=== PATIENT | female | born 1940 | race Caucasian/White ===

== ENCOUNTER 2019-03-22 08:46 | Inpatient (IN) ==
[2019-03-22] MEDS ORDERED: NS 1,000 ML IV ONE ×3 (09:11→19:49)
[2019-03-22] MEDS ORDERED: NORFLEX IV ONE (09:14)
[2019-03-22] MEDS ORDERED: TYLENOL WITH CODEINE #3 PO ONE (09:14)
--- NOTE | 2019-03-22 09:29 | PROVIDER DOCUMENTATION ---
HPI-General Adult - General Chief Complaint: Neck Pain Stated Complaint: NECK BACK HEAD PAIN, N/V/D Time Seen by Provider: 03/22/19 08:52 Source: patient, family Allergies/Adverse Reactions: Patient Allergies Allergy/AdvReac Type Severity Reaction Status Date / Time codeine Allergy NAUSEA/VOMI Verified 10/25/15 16:10 TING Sulfa (Sulfonamide Allergy RASH Verified 09/28/13 13:59 Antibiotics) Home Medications: Home Medication List Medication Instructions Recorded Confirmed Last Taken Type Amlodipine Besylate [Norvasc] 5 mg PO DAILY 08/12/17 03/22/19 03/21/19 History 5 MG Duloxetine HCl [Cymbalta] 30 mg PO DAILY 08/12/17 03/22/19 03/21/19 History 30 MG Hydrocodone/Acetaminophen [[place] 1 each PO Q4-6H PRN PRN 08/12/17 03/22/19 03/21/19 History 7.5-325 Tablet] 1 EACH Letrozole 2.5 mg PO DAILY 08/12/17 03/22/19 03/21/19 History 2.5 MG Meloxicam [Mobic] 15 mg PO DAILY 08/12/17 03/22/19 03/21/19 History 15 MG Nitrofurantoin [place]/Macrocryst 100 mg PO BID 5 Days #10 cap 03/22/19 Unknown Rx [Macrobid] - History of Present Illness -Gen Adult Nature of Presenting Problems: PER PATIENT, MEDICAL CONDITION OF HYPERTENSION AND FIBROMYALGIAC CAME IN TODAY WITH CONCERN OF LEFT NECK PAIN THAT STARTED THIS PAST WHILE DOING NOTHING AT HOME. PATIENT DENIES ANY RECENT INJURY OR CHIRPRACTOR MANEUVRATION. STATES INITALLY IT WAS GRADUAL ONSET BUT WITHIN ONE HOUR, IT BECAME 10/10. ENDORSE CHILL. DENIES OTHER ASSOICATED SYMPTOSM SUCH HEADACHE, BLURRY VISION, EAR PAIN, SINUS DISCOMFORT, SORE THROAT, CHEST PAIN, DYSPNEA, ABDOMINAL DISCOMFORT; SEE ROS SECTION. Review of Systems - Adult - REVIEW OF SYSTEMS - ADULT Constitutional: reports: chills. denies: fever, night sweats Eyes: denies: blurred vision Ears, Nose, Mouth & Throat: denies: ear pain, throat pain Cardiovascular: denies: chest pain Respiratory: denies: cough, shortness of breath Gastrointestinal: denies: abdominal pain, diarrhea, nausea Genitourinary: denies: dysuria Musculoskeletal: reports: neck pain. denies: joint pain, muscle weakness Integumentary: reports: no symptoms reported Neurological: reports: no symptoms reported Psychiatric: reports: no symptoms reported Endocrine: reports: no symptoms reported Hematologic/Lymphatic: reports: no symptoms reported Allergic/Immunologic: reports: no symptoms reported Past History - Adult - PAST MEDICAL HISTORY-ADULT Review of Records: reports: Old Records Reviewed Major Childhood Illnesses: reports: denies history Cardiovascular: reports: HTN Other Conditions: reports: other cancer (right breast ca), cataract/glaucoma - PRIOR SURGERIES/PROCEDURES Surgical/Procedure History: reports: hysterectomy - IMMUNIZATION STATUS Childhood Immunizations: See Nurse Assessment Flu Vaccine: See Nurse Assessment - FAMILY HISTORY Family History: reviewed, not pertinent Physical Exam-General - PHYSICAL EXAM-ADULT Initial Vital Signs Reviewed: Yes - CONSTITUTIONAL General Appearance: alert, mild distress - EYES Eyes: PERRL/EOMI - HEAD, EARS, NOSE, MOUTH & THROAT HENMT: normocephalic/atraumatic, moist mucous membranes - NECK Neck: supple, other (NO TRACHIAL DEVIATION. POINT TENDERNESS BILATERAL OCCIPUT AND TRAPEZIUS WELL LAERAL EPICONDYL AND KNEE. LIMITED NECK RANGE OF MOTION DUE TO PAIN. NO KERNIG SIGN.) - RESPIRATORY Respiratory: chest non-tender, lungs clear, normal breath sounds - CARDIOVASCULAR Cardiovascular: normal peripheral pulses, regular rate, rhythm, no edema, no gallop, no JVD, no murmur - GASTROINTESTINAL (ABDOMEN) Abdominal Exam: normal bowel sounds, non tender, soft - MUSCULOSKELETAL Back Exam: normal inspection. negative: vertebral tenderness Extremity: normal range of motion - SKIN Integumentary: normal color, normal turgor, warm/dry - NEUROLOGIC Neurologic: grossly normal - PSYCHIATRIC Psych/Mental Status: normal mood/affect, normal thought content, normal thought process, oriented x 3 Progress - PLAN OF CARE/RESULTS Progress/Plan/Lab Results: Vital Signs - 8 hr 03/22/19 08:39 Temperature 98.0 F Pulse Rate 78 Respiratory Rate 17 Blood Pressure 156/73 O2 Sat by Pulse Oximetry 99 Orders Category Date Time Status IV Insertion ORDERED Care 03/22/19 09:[address] NECK W/CONTRAST [CT] Stat Exams 03/22/19 09:11 Ordered BASIC METABOLIC PANEL [CHEM] Stat Lab 03/22/19 09:11 Uncollected BLOOD CULTURE [BLDCUL] Stat Lab 03/22/19 09:11 Uncollected CBC WITH ELECTRONIC DIFF [HEME] Stat Lab 03/22/19 09:11 Uncollected MAGNESIUM [CHEM] Stat Lab 03/22/19 09:11 Uncollected URINALYSIS [URINALYSIS] Stat Lab 03/22/19 09:11 Uncollected 0.9% Sodium Chloride Inj [Ns] 1,000 ml Med 03/22/19 09:11 Active IV 999 mls/hr Acetaminophen with Codeine [Tylenol with Codeine #3] Med 03/22/19 09:14 Discon tinued 1 each PO NOW ONE Orphenadrine [Norflex] Med 03/22/19 09:14 Discontinued 60 mg IV NOW ONE Result Diagrams: 03/22/19 09:26 03/22/19 09:26 - REASSESSMENT Reassessment #1 Time Reassessed: 13:51 Status: other (MESSAGE WAS RELAYED FROM LEAD CASTER HELPER THAT PER RADIOLOGIST WHO READ THE CT OF NECK WITHOUT CONTRACT; RADIOLOGIST IS ABLE TO SEE THE NECK AND NO ADDITIONAL INDICATION TO RESCAN WITH CONTRAST. REVIEW OF PATIENT'S LAB REVEAL MILDLY ELEVATED WBC IN SETTING OF UTI; WILL TREAT WITH CEFTRIAXONE AND D/C PATIENT ON ANTIBIOTICS. PATIENT HAS HYPOKALEMIA WHICH WAS REPLEATED. PATIENT REMAINED HEMODYNAMICALLY STABLE AND AFEBIEL IN THE [facility] ER STAY. I HAVE INFORMED FAMILY AND PATIENT THE FINDING BUT THEY WERE NOT SASTIFIFED WITH THE FINDING. I HAVE INFORMED THEN THEY HAVE TO FOLLOW UP WITH PCP BY CALLING AFTER D/C AND AMKE THE NEXT AVAILASBLE APPOINTMENT.) - EKG 1 Time of EKG reading by physician:: 09:12 EKG Read and Signed by:: Huseyin Martin EKG Interpretation (*Must complete 3 of following elements*): Normal Rate: 72 Rhythm: NRS [place]: normal QRS: normal [place] Interval: normal ST Wave: normal Prior EKG Comparison: no prior EKG - CT/MRI 1 CT Study: Neck ([facility] - [address], [address], [place] [address] [facility] - [address] [facility] [address] Department of Imaging Patient: LORRIE WATERS Date: 03/22/19MR#: [id number] : 1941ADM Status: [facility]#: [id number] Age/Sex: 78/FRoom/Bed: Loc: ED Ordering Physician: Huseyin Martin MD Family Physician: Lucio Amor MD Reason for Procedure: SEVERE LEFT NECK PAIN OUT OF PROPORTION; NO INJURY ___ Signed CT NECK W/CONTRAST - 03/22/2019 INDICATION: SEVERE LEFT NECK PAIN OUT OF PROPORTION; NO INJURY COMPARISON: Cervical spine CT 10/25/2015 FINDINGS: The soft tissues of the neck are clear. The major salivary glands are all clear. Mucosal surfaces are clear. No mass or adenopathy. Alignment of the spine is anatomic. Stable fusion changes at C5-C6. No fracture or subluxation. Stable moderate multilevel degeneration mainly at the left-sided facets. IMPRESSION: No acute process. This exam was performed using automated exposure control, adjustment of mA or kV according to patient size, and/or use of iterative reconstruction technique Electronically signed by Lit Otero 03/22/2019 12:07 PM 03/22/19 1207 Interpreting Physician: Lit Otero MD Dictated Date/Time: 03/22/19 1202 cc: Huseyin Martin MD; Lucio Amor MD) Departure - Departure Date of Disposition Decision: 03/22/19 Time of Disposition Decision: 13:54 DIAGNOSIS: Fibromyalgia, Urinary tract infection Disposition: HOME 01 Certified Medical Emergency: Emergent Condition: Stable Additional Instructions: ED Follow Up Instructions: You have been treated by a care provider in the Emergency Department. These instructions are being provided to you so you can have an understanding of how to care for yourself upon discharge. Upon discharge from the Emergency Department, you are responsible for making arrangements for follow-up care by a physician of your choice. Take all prescribed medications as directed. Return to the Emergency Department immediately for any new or worsening symptoms. Call your primary care provider after discharge from the Emergency Room and make a follow up appointment to be seen at the next available appointment within 7 days. Prescriptions: Nitrofurantoin [place]/Macrocryst [Macrobid] 100 mg PO BID 5 Days #10 cap Referrals and Follow-Ups: Lucio Amor MD [Primary Care Provider] - - Critical Care Note This patient required my direct & personal management of CC.: No Attestation - Physician/ SUSIE Attestation Patient care was provided by Advanced Practice Provider:: No The physician spent face to face time with patient:: Yes Advanced Practice Provider documentation review:: Supervising physician onsite and consulted in the evaluation and care of this patient. The physician did have a face to face encounter with the patient.
[2019-03-22 10:03] LABS: BASO# 0.02 X1000 (0.0-0.2); BASO% 0.2 % (0.0-0.8); EOS# 0.18 X1000 (0.0-0.7); EOS% 1.5 % (0.0-10.0); HEMATOCRIT 39.8 % (37.0-47.0); HEMOGLOBIN 13.2 g/dL (12.0-16.0); IMM GRAN# 0.03 X1000 (0.0-0.04); IMM GRAN% 0.3 % (0.0-0.5); LYMPH# 3.12 X1000 (1.2-3.4); MCH 30.6 PG (27-31); MCHC 33.2 g/dL (33-37); MCV 92.1 FL (81-99); MONO# 1.34 X1000 (0.11-0.59); MONO% 11.2 % (1.7-9.3); MPV 11.2 FL (7.4-10.4); NEUT% 60.8 % (42.2-75.2); PLT 340 X1000 (130-400); RBC 4.32 XMIL (4.2-5.4); RDW 12.7 % (11.5-14.5); WBC 11.99 X1000 (4.8-10.8)
[2019-03-22 10:44] LABS: CALCIUM 10.5 mg/dL (8.8-10.2); MAGNESIUM 1.9 mg/dL (1.5-2.7); POTASSIUM 3.4 mmol/L (3.5-5.1)
[2019-03-22 11:01] LABS: URINE SOURCE CLEAN CATCH
[2019-03-22 11:05] LABS: BILIRUBIN URINE NEGATIVE (NEGATIVE); BLOOD URINE NEGATIVE (NEGATIVE); COLOR YELLOW; GLUCOSE URINE NEGATIVE (NEGATIVE); KETONE URINE TRACE mg/dL (NEGATIVE); LEUKOCYTES URINE LARGE (NEGATIVE); NITRITE URINE NEGATIVE (NEGATIVE); PH URINE 7.5; PROTEIN URINE 30 mg/dL (NEGATIVE); SP GRAVITY URINE 1.016; TURBIDITY URINE HAZY (CLEAR); UR EPITHELIAL CELLS <10 /HPF (<10); URINE BACTERIA NEGATIVE /HPF; URINE RBC <10 /HPF (<10); URINE WBC TNTC /HPF (<10); UROBILINOGEN URINE NORMAL (NORMAL)
[2019-03-22] MEDS ORDERED: KLOR-CON PO ONE (11:26)
--- NOTE | 2019-03-22 12:10 | Diag Imaging Result Doc PS360 ---
CT NECK W/CONTRAST - 03/22/2019 INDICATION: SEVERE LEFT NECK PAIN OUT OF PROPORTION; NO INJURY COMPARISON: Cervical spine CT 10/25/2015 FINDINGS: The soft tissues of the neck are clear. The major salivary glands are all clear. Mucosal surfaces are clear. No mass or adenopathy. Alignment of the spine is anatomic. Stable fusion changes at C5-C6. No fracture or subluxation. Stable moderate multilevel degeneration mainly at the left-sided facets. IMPRESSION: No acute process. This exam was performed using automated exposure control, adjustment of mA or kV according to patient size, and/or use of iterative reconstruction technique Electronically signed by Lit Otero 03/22/2019 12:07 PM
--- NOTE | 2019-03-22 12:11 | EKG Report ---
Test Performed on : 03/22/2019 09:12:11 AM Test Reason : NECK PAIN Blood Pressure : / mmHG Vent. Rate : 072 BPM Atrial Rate : 072 BPM P-R Int : 136 ms QRS Dur : 084 ms QT Int : 376 ms P-R-T Axes : 071 010 -14 degrees QTc Int : 411 ms Normal sinus rhythm. Nonspecific ST and T wave abnormality Abnormal ECG When compared with ECG of 25-OCT-2015 17:20, ST now depressed in Inferior leads Nonspecific T wave abnormality now evident in Inferior leads Inverted T waves have replaced nonspecific T wave abnormality in Anterior leads Unconfirmed Result
[2019-03-22] MEDS ORDERED: ROCEPHIN 1 GM in NS 50 ML IV ONE (12:45)
[2019-03-22] MEDS ORDERED: FLEXERIL PO ONE (15:03)
[2019-03-22] MEDS ORDERED: ZOFRAN IV PRN (19:42)
[2019-03-22] MEDS ORDERED: TYLENOL PO PRN (19:42)
[2019-03-22] MEDS ORDERED: NORCO-7.5 PO ONE (19:44)
[2019-03-22] MEDS: LYRICA PO SCH (20:46)
[2019-03-22] MEDS: LOVENOX SUBQ SCH (20:46)
[2019-03-22] MEDS: NORVASC PO SCH (20:46)
--- NOTE | 2019-03-22 21:02 | HISTORY AND PHYSICAL ---
PRIMARY CARE PHYSICIAN: Dr. Lucio Amor. CHIEF COMPLAINT: Intractable left neck pain, nausea, chills. HISTORY OF PRESENT ILLNESS: An 78-year-old white female with a complicated past medical history presents for evaluation of above-mentioned symptoms. Pertinent history of present illness began approximately 2 weeks ago. At that time, patient developed acute onset left cervical spine pain. She denied significant left upper extremity neurologic deficits or loss of strength. This proved to be self-limiting. Around this time, patient's gabapentin was discontinued per her pain specialist. The patient continued to have intermittent symptoms over the course of the next week. Patient was seen by her pain specialist and her Nucynta was transitioned to [place]. The patient was taking [place] approximately 1 time per day. On Friday afternoon, patient developed intractable headache, intractable left cervical spine pain, nausea, vomiting, and chills. She attempted to treat this symptomatically, although without success. On Friday, the pain continued. She was unable to rest. P.o. intake decreased considerably secondary to the nausea and vomiting. She denied fevers, abdominal pain, constipation, hematochezia, and melena. She has occasional diarrhea. This morning upon waking, the pain became unbearable. The patient contacted EMS and patient was transported to the emergency department for further evaluation and management. Upon arrival, full evaluation was pursued. CT scan of the neck revealed no acute process. EKG suggested nonspecific ST and T-wave abnormalities. Laboratory data was significant for an elevated white blood cell count, hypokalemia, and a urinalysis with too many to count white blood cells present. Pain management was attempted in the emergency department, although unsuccessfully. The patient will be admitted to the hospital for full evaluation and management of intractable left cervical spine pain with associated nausea, vomiting and chills. PAST MEDICAL HISTORY: 1. Allergic rhinitis. 2. History of appendectomy during exploratory laparotomy in the mid . 3. Diffuse arthralgias, likely Femara associated. 4. Multiple brown nevi. 5. History of infiltrating ductal carcinoma of the right breast status post lumpectomy followed by XRT. 6. History of left-sided trochanteric bursitis. 7. Atypical chest pain with negative cardiac evaluation in 2005. 8. 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 9. Colonic diverticulosis. 10. Situational depression associated with chronic low back pain. 11. Reflux disease. 12. Hypertriglyceridemia. 13. Family history of heart disease. 14. Internal hemorrhoids. 15. Hiatal hernia. 16. Hyperlipidemia. 17. Hypertension. 18. Low HDL. 19. History of menorrhagia status post total abdominal hysterectomy /unilateral salpingo- oophorectomy at age 34. 20. Right knee osteoarthritis status post total knee arthroplasty in 2006. 21. 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 She currently is followed by Dr. Ramos with pain management. 22. 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 23. History of colonic polyps. 24. Urinary incontinence. 25. History of vitamin D deficiency. CURRENT MEDICATIONS: 1. Amlodipine 5 mg twice daily. 2. Duloxetine 60 mg daily. 3. Hydrochlorothiazide 12.5 mg daily. 4. Letrozole 2.5 mg daily. 5. Losartan 100 mg daily. 6. Melatonin 3 mg at bedtime as needed. 7. Meloxicam 15 mg daily. 8. [place] 7.5/325 as needed. 9. Pantoprazole 40 mg daily as needed. 10. Rosuvastatin 20 mg at bedtime. 11. Voltaren Gel as needed. 12. Zometa every [address] Merritt. 13. Zyrtec 10 mg daily as needed. ALLERGIES: 1. Patient states she is allergic to amlodipine/benazepril which causes swelling with doses greater than 7.5 mg. 2. Codeine causes nausea and vomiting. 3. Sulfa causes a rash. SOCIAL HISTORY: Patient denies tobacco, alcohol or illicit drug use. She is retired from [employer]. She currently works as a homemaker and volunteer. She enjoys gardening. She exercises routinely. FAMILY HISTORY: Patient's father passed at age 84 secondary to complications of coronary artery disease. Patient's mother passed at age 79 secondary to complications of congestive heart failure. The patient has a sister and a brother with coronary artery disease. REVIEW OF SYSTEMS: A 12 point review of systems was performed. Pertinent positives and negatives are noted in history present illness. PHYSICAL EXAMINATION: VITAL SIGNS: Temperature 98.4 degrees, heart rate 56, respirations 18, blood pressure is 142/54. GENERAL: Well nourished, well developed, no acute distress. HEENT: Normocephalic, atraumatic. Pupils equal, round, reactive to light. Extraocular muscles intact. Sclerae anicteric. [place] conjunctivae. Oral and nasopharynx clear without exudate. NECK: Supple. No lymphadenopathy. No thyromegaly. No bruits auscultated. CARDIOVASCULAR: Regular rate and rhythm. No significant murmurs, rubs, or gallops. PULMONARY: Clear to auscultation bilaterally. ABDOMEN: Soft, nontender, nondistended. Positive bowel sounds. EXTREMITIES: Moves all extremities well. No significant clubbing, cyanosis or edema. NEUROLOGIC: Cranial nerves 2-12 grossly intact. Motor and sensory grossly intact. PSYCHOLOGIC: Appropriate. MUSCULOSKELETAL: Reveals pain to palpation of the left anterior and lateral cervical spine. LABORATORY DATA: White blood cell count 11.99, hemoglobin 13.2, hematocrit 39.8, platelet count 340,000. Sodium 141, potassium 3.4, chloride 105, bicarb 24, BUN 16, creatinine 1.0, glucose 124, calcium 10.5, magnesium 1.9. Urinalysis revealed too many to count white blood cells. ASSESSMENT AND PLAN: An 78-year-old white female with a complicated past medical history as noted presents for evaluation of intractable left cervical spine pain. Full evaluation revealed a normal CT scan of the neck, abnormal urinalysis, elevated white blood cell count and hypokalemia. Examination is significant for pain to palpation of the left sternocleidomastoid muscle. Of note, patient's pain medications have recently been changed per her pain clinic. Patient will be admitted to the hospital for full evaluation and management of each of these conditions. 1. Admit to General Medicine. 2. Intractable cervical spine pain-differential diagnosis includes cervical spine pathology, muscle spasms, medication associated and withdrawal in the setting of transitioning medications per her pain specialist. We will start patient on [place] 3 times daily. We will add Lyrica. Depending on patient's progress, we will consider whether MRI evaluation is appropriate. 3. Possible urinary tract infection-patient's urinalysis suggested too numerous to count white blood cells. The patient was started on Rocephin therapy while in the emergency department. We will continue this while hospitalized and follow patient's urine culture. 4. Leukocytosis/chills-again, concern is raised as to potential infectious etiologies. We will follow blood culture. We will continue Rocephin for now. At this point, underlying urinary tract infection may be the etiology. 5. Hypokalemia-patient was treated with potassium supplementation while in the emergency department. We will follow this. 6. Hyperlipidemia-the patient is treated with Crestor therapy as an outpatient. We will hold this for now in the setting of myalgias. We will plan to resume this at discharge. 7. Hypertension-we will continue patient on her home regimen. 8. Chronic low back pain-we will treat patient with [place] and Lyrica as noted. 9. Fluid, electrolytes, nutrition. We will monitor electrolytes. Normal saline at 75 mL an hour. Regular diet. 10. Prophylaxis. Patient will be placed on subcu Lovenox. cc: Lucio Amor MD
[2019-03-22 22:30] LABS: URINE SOURCE CLEAN CATCH
[2019-03-22 23:26] LABS: BILIRUBIN URINE NEGATIVE (NEGATIVE); BLOOD URINE SMALL (NEGATIVE); COLOR YELLOW; GLUCOSE URINE NEGATIVE (NEGATIVE); KETONE URINE NEGATIVE (NEGATIVE); LEUKOCYTES URINE LARGE (NEGATIVE); NITRITE URINE NEGATIVE (NEGATIVE); PROTEIN URINE 50 mg/dL (NEGATIVE); TURBIDITY URINE HAZY (CLEAR); UR EPITHELIAL CELLS <10 /HPF (<10); URINE BACTERIA NEGATIVE /HPF; URINE RBC <10 /HPF (<10); URINE WBC TNTC /HPF (<10); UROBILINOGEN URINE 4 mg/dL (NORMAL)
[2019-03-23 08:22] LABS: ALB/GLOB RATIO 1.1; ALBUMIN 3.1 g/dL (3.5-5.0); CALCIUM 9.5 mg/dL (8.8-10.2); CREATININE 0.9 mg/dL (0.5-0.9); POTASSIUM 4.8 mmol/L (3.5-5.1); TOTAL BILIRUBIN 0.56 mg/dL (0.20-1.00); TOTAL PROTEIN 5.9 g/dL (6.3-8.3)
[2019-03-23 08:26] LABS: BASO# 0.02 X1000 (0.0-0.2); BASO% 0.3 % (0.0-0.8); EOS# 0.61 X1000 (0.0-0.7); HEMATOCRIT 38.9 % (37.0-47.0); HEMOGLOBIN 12.2 g/dL (12.0-16.0); IMM GRAN# 0.02 X1000 (0.0-0.04); IMM GRAN% 0.3 % (0.0-0.5); LYMPH# 2.73 X1000 (1.2-3.4); LYMPH% 35.9 % (20.5-51.1); MCH 30.1 PG (27-31); MCHC 31.4 g/dL (33-37); MONO# 1.08 X1000 (0.11-0.59); MONO% 14.2 % (1.7-9.3); MPV 11.4 FL (7.4-10.4); NEUT# 3.15 X1000 (1.4-6.5); NEUT% 41.3 % (42.2-75.2); PLT 292 X1000 (130-400); RBC 4.05 XMIL (4.2-5.4); WBC 7.61 X1000 (4.8-10.8)
[2019-03-23] MEDS: FEMARA PO SCH (08:53)
[2019-03-23] MEDS: ROCEPHIN 1 GM in NS 50 ML IV SCH ×2 (08:53→15:04)
[2019-03-23] MEDS: CYMBALTA PO SCH (08:53)
[2019-03-23] MEDS: MOBIC PO SCH (08:53)
[2019-03-23] MEDS: LYRICA PO SCH ×2 (08:53→21:35)
[2019-03-23] MEDS: NORCO-7.5 PO SCH ×2 (08:53→15:04)
[2019-03-23] MEDS: NORVASC PO SCH ×2 (08:54→21:35)
[2019-03-23] MEDS ORDERED: NORCO-7.5 PO SCH (09:00)
--- NOTE | 2019-03-23 21:28 | PROGRESS NOTE ---
DATE: 03/23/2019 SUBJECTIVE: Patient was admitted yesterday with intractable left neck pain with associated nausea and chills. Full evaluation was pursued. CT scan revealed no evidence of acute abnormality. Laboratory data was significant for a urinary tract infection. The patient was admitted, placed on IV antibiotics, and a medical regimen was arranged for her neck pain. Overnight, patient states she did reasonably well. Upon my arrival this morning, the patient did note better control of her pain. She was started on Lyrica and [place] yesterday evening. Through the day today, patient worked with physical therapy. Her p.o. intake has been improving. This evening patient is resting in bed. She does note pain to be present, but improved from yesterday. She denies neurological deficits to the left upper extremity. She denies fevers, chills, nausea, vomiting, shortness of breath, or chest discomfort at present time. OBJECTIVE: T-max 98.6 degrees, heart rate 63 to 74, respirations 16 to 26, blood pressure 120 to 155 over 48 to 73.General: Well nourished, well developed, no acute distress. Cardiovascular: Regular rate and rhythm. No significant murmurs, rubs, or gallops. Pulmonary: Clear to auscultation bilaterally. Abdomen: Soft, nontender, nondistended. Positive bowel sounds. Extremities: Moves all extremities well. No significant clubbing, cyanosis, or edema. Dermatologic: Evaluation reveals no evidence of rash. Musculoskeletal: Examination reveals pain to palpation of the left lateral neck. LABORATORY DATA: White blood cell count 7.61, hemoglobin 12.2, hematocrit 38.9, platelet count 292,000. Sodium 143, potassium 4.8, chloride 110, bicarb 23, BUN 14, creatinine 0.9, glucose 109, calcium 9.5, total bilirubin 0.56, total protein 5.9, albumin 3.1, alkaline phosphatase 68, AST 12, ALT 8. ASSESSMENT AND PLAN: 1. Intractable cervical spine pain-at this point, with the addition of Lyrica and [place] therapy, pain has become more manageable. The patient worked well with physical therapy. If patient continues to tolerate medications well and her pain becomes better controlled, we will plan discharge home in the morning. If not, we will plan MRI of the cervical spine. 2. Possible urinary tract infection-patient's urine culture is pending. We will continue patient on Rocephin therapy. 3. Leukocytosis/chills-patient has achieved improvement while hospitalized. We will continue treatment of her underlying urinary tract infection. 4. Hypokalemia-patient was treated with potassium supplementation in the emergency department. Potassium has normalized. 5. Hyperlipidemia-the patient's Crestor will be held in the setting of myalgias. We will consider resuming this at discharge. 6. Hypertension-blood pressure is controlled on her current regimen. 7. Chronic low back pain-symptoms are better controlled with Lyrica and [place] therapy. 8. Disposition-at this point, patient continues to require nursing home care in a hospital setting. We will plan discharge home once appropriate. cc: Lucio Amor MD
[2019-03-23] MEDS: LOVENOX SUBQ SCH (21:36)
[2019-03-24] MEDS: NORCO-7.5 PO SCH ×2 (01:37→10:53)
[2019-03-24] MEDS ORDERED: KEFLEX PO ONE (10:43)
[2019-03-24] MEDS: MOBIC PO SCH (10:53)
[2019-03-24] MEDS: NORVASC PO SCH (10:53)
[2019-03-24] MEDS: CYMBALTA PO SCH (10:53)
[2019-03-24] MEDS: LYRICA PO SCH (10:54)
[2019-03-24] MEDS: FEMARA PO SCH (10:54)
[2019-03-24 13:35] VITALS: BP 126/42
--- NOTE | 2019-03-25 06:20 | DISCHARGE SUMMARY ---
ADMISSION DATE: 03/23/2019 DISCHARGE DATE: 03/24/2019 ADMISSION DIAGNOSES: 1. Intractable left neck pain. 2. Nausea. 3. Chills. DISCHARGE DIAGNOSES: 1. Intractable cervical spine pain, improving. 2. Possible urinary tract infection, treated. 3. Leukocytosis/chills, resolved. 4. Hypokalemia, resolved. 5. Hyperlipidemia, present on arrival. 6. Hypertension, present on arrival. 7. Chronic low back pain, stable. CONSULTATIONS: None. PROCEDURES: CT scan of the neck was performed on 03/22/2019 which revealed no acute process. HISTORY AND PHYSICAL EXAMINATION: See admit note. PHYSICAL EXAMINATION PRIOR TO DISCHARGE: Vital signs: Temperature 98.1 degrees, heart rate 70, respirations 20, blood pressure is 149/68. General: Well nourished, well developed, no acute distress. Cardiovascular: Regular rate and rhythm. No significant murmurs, rubs, or gallops. Pulmonary: Clear to auscultation bilaterally. Abdomen: Soft, nontender, nondistended. Positive bowel sounds. Extremities: Moves all extremities well. No significant clubbing, cyanosis, or edema. Dermatologic: Reveals no evidence of rash. Musculoskeletal: Reveals pain to palpation of the left anterior cervical spine, improved from admission. LABORATORY DATA PRIOR TO DISCHARGE: None. HOSPITAL COURSE: Patient was admitted as per history and physical examination. Hospital course per condition is as follows. 1. Intractable cervical spine pain - upon admission, patient was noted to have intractable pain. This likely was secondary to a combination of several factors. Recently, patient's pain medications including Nucynta and gabapentin were changed. Additionally, patient was started on Crestor recently. No significant injury was noted. With these factors, this likely precipitated her intractable pain. The patient was placed as an inpatient secondary to the intractable nature. Patient was started on Mona 3 times daily and Lyrica twice daily. With the addition of these medications, patient's pain did not resolve, but improved to an unacceptable level. The patient will be discharged with these medications. Close followup with her pain clinic will be encouraged. We will continue to hold rosuvastatin as this may have contributed to her pain. 2. Possible urinary tract infection - patient's urinalysis returned abnormal. Thus far, her culture is negative. She was treated with Rocephin while hospitalized. We will complete 5 additional days of Keflex as an outpatient. We will follow urine cultures. Blood cultures remained negative while hospitalized. 3. Leukocytosis/chills - this likely was secondary to a combination of intense pain, possible narcotic withdrawal, and possible urinary tract infection. With treatment of each, she did achieve resolution. 4. Hypokalemia - patient was diagnosed upon admission. With supplementation, her potassium normalized. 5. Hyperlipidemia - as above, patient recently was started on rosuvastatin therapy. In the setting of her intense pain, this will be held. We will consider resuming this as an outpatient. 6. Hypertension - patient's blood pressure remained reasonably controlled with amlodipine twice daily. While at home, she appears to have been taking this only once daily. We will ask patient to increase to 5 mg twice daily. We will monitor for lower extremity edema. We will continue hydrochlorothiazide as well. 7. Chronic low back pain - patient's symptoms were present, but reasonably controlled with Lyrica and Mona therapy. We will defer further management to her pain specialist. DISCHARGE CONDITION: Stable. DISPOSITION: Discharge to home. MEDICATIONS: 1. Hydrochlorothiazide 12.5 mg daily. 2. Lyrica 75 mg twice daily (new). 3. Amlodipine 5 mg twice daily. 4. Tylenol 650 mg every 6 hours as needed. 5. Cymbalta 60 mg daily. 6. Mona 7.5/325 one tablet 3 times daily. 7. Pantoprazole 40 mg daily as needed. 8. Letrozole 2.5 mg daily. 9. Meloxicam 15 mg daily. 10. Keflex 500 mg twice daily for 5 days. FOLLOWUP: Patient is to follow up with me in approximately 1 to 2 weeks. cc: Lucio Amor MD
== END 2019-03-24 14:30 | disposition home or self-care (01) | DRG 552 ==
LOC: SUPCPDRO → 3N 08:46 → ED 08:46
PROVIDERS: ADMIT Internal Medicine; ATTEND Internal Medicine

== ENCOUNTER 2019-05-25 16:58 | Inpatient (IN) ==
[2019-05-25] MEDS ORDERED: TYLENOL PO PRN ×2 (17:37→19:39)
[2019-05-25 19:36] LABS: BASO# 0.16 X1000 (0.0-0.2); BASO% 1.4 % (0.0-0.8); EOS# 0.77 X1000 (0.0-0.7); EOS% 6.7 % (0.0-10.0); HEMATOCRIT 41.3 % (37.0-47.0); IMM GRAN# 0.02 X1000 (0.0-0.04); IMM GRAN% 0.2 % (0.0-0.5); LYMPH# 3.19 X1000 (1.2-3.4); LYMPH% 27.8 % (20.5-51.1); MCH 30.1 PG (27-31); MCHC 31.5 g/dL (33-37); MCV 95.6 FL (81-99); MONO# 1.29 X1000 (0.11-0.59); MONO% 11.2 % (1.7-9.3); MPV 10.8 FL (7.4-10.4); NEUT# 6.05 X1000 (1.4-6.5); NEUT% 52.7 % (42.2-75.2); PLT 287 X1000 (130-400); RBC 4.32 XMIL (4.2-5.4); RDW 12.7 % (11.5-14.5); WBC 11.48 X1000 (4.8-10.8)
[2019-05-25] MEDS ORDERED: PROTONIX PO PRN (19:39)
[2019-05-25 19:57] LABS: ALB/GLOB RATIO 1.4; ALBUMIN 3.7 g/dL (3.5-5.0); CALCIUM 10.6 mg/dL (8.8-10.2); CREATININE 0.9 mg/dL (0.5-0.9); POTASSIUM 4.6 mmol/L (3.5-5.1); TOTAL BILIRUBIN 0.75 mg/dL (0.20-1.00); TOTAL PROTEIN 6.4 g/dL (6.3-8.3)
[2019-05-25] MEDS: NORCO-7.5 PO SCH (20:23)
[2019-05-25] MEDS: NS 1,000 ML IV SCH (20:23)
[2019-05-25 20:35] LABS: URINE SOURCE CLEAN CATCH
[2019-05-25 20:36] LABS: BILIRUBIN URINE NEGATIVE (NEGATIVE); BLOOD URINE NEGATIVE (NEGATIVE); COLOR YELLOW; GLUCOSE URINE NEGATIVE (NEGATIVE); KETONE URINE NEGATIVE (NEGATIVE); LEUKOCYTES URINE SMALL (NEGATIVE); NITRITE URINE NEGATIVE (NEGATIVE); PROTEIN URINE NEGATIVE (NEGATIVE); SP GRAVITY URINE 1.014; TURBIDITY URINE CLEAR (CLEAR); UROBILINOGEN URINE NORMAL (NORMAL)
[2019-05-25 20:38] LABS: UR EPITHELIAL CELLS <10 /HPF (<10); URINE BACTERIA NEGATIVE /HPF; URINE RBC <10 /HPF (<10); URINE WBC <10 /HPF (<10)
--- NOTE | 2019-05-25 21:30 | Diag Imaging Result Doc PS360 ---
EXAM: CT ABDOMEN/PELVIS W/O CONTRAST INDICATION: Intractable abd pain, nausea, vomiting, diarrhea TECHNIQUE: This exam was performed using automated exposure control, adjustment of mA or kV according to patient size, and/or use of iterative reconstruction technique. COMPARISON: CT pelvis dated 08/12/2017 FINDINGS: There is mild scarring at the lung bases. The gallbladder, liver, spleen, pancreas, adrenal glands, kidneys, and urinary bladder are grossly unremarkable. There has been a prior hysterectomy. There is [id number] uncomplicated diverticulosis coli mainly involving the sigmoid colon. There is a small posterior abdominal wall hernia at the left flank that contains a small loop of the descending colon but no evidence of obstruction. No focal bowel wall thickening is appreciated. The remainder of the GI tract is essentially unremarkable. There is extensive degenerative arthropathy involving the lower lumbar spine and there are postsurgical changes involving the lumbar spine and a couple of levels. There is no evidence of acute osseous abnormality. IMPRESSION: 1.Uncomplicated diverticulosis coli. 2.Small posterior abdominal wall hernia on the left at the flank containing a loop of colon but no obstruction. 3.Other incidental/nonacute findings detailed above. No definite acute pathology by CT. Electronically signed by Pee Berumen 05/25/2019 9:28 PM
[2019-05-25] MEDS: NORVASC PO SCH (22:02)
[2019-05-25] MEDS: FLAGYL PO SCH (22:02)
[2019-05-26] MEDS: ZOFRAN IV PRN (00:08)
--- NOTE | 2019-05-26 04:02 | HISTORY AND PHYSICAL ---
CHIEF COMPLAINT: Uncontrollable diarrhea, nausea, and vomiting. HISTORY OF PRESENT ILLNESS: An 78-year-old white female with a complicated past medical history presents for evaluation of above-mentioned symptoms. Pertinent history of present illness began in March. At that time, patient was admitted to [facility] with intractable lumbar spine pain. Medications were adjusted. Ultimately, with this adjustment, patient achieved stabilization. She was discharged home after a brief hospitalization. The patient states approximately at that time she began to develop intermittent loose stools. The patient attributed this to medications. No intervention was deemed warranted. Over the course of the last 2 weeks, however, she has developed intractable symptoms. The patient notes loose stool on nearly every bowel movement. On Friday morning, she awoke with associated nausea and vomiting. She experienced a syncopal episode during that day, which proved to be only transient. Throughout the day, patient states she felt poorly. On Friday, unfortunately, symptoms persisted. The patient considered going to the emergency department but chose to wait to be seen in clinic. Yesterday, symptoms increased. Nausea and vomiting persisted and p.o. intake was very marginal. She was noted to have low-grade fevers and intermittent chills. She described several of her bowel movements as being very dark, almost black in appearance. She denied any hematochezia. Because of her persistent symptoms, she contacted my office and an appointment was made. Upon evaluation, patient was forced to be resting supine on the examining table. She noted profound weakness. She will be admitted to the hospital for full evaluation and management. Of note, patient denies dysuria, hematuria, or pyuria. She denies any sick contacts. She has not been treated with antibiotics recently. She does note having a change in her pain medications to Nucynta in the fairly recent past. PAST MEDICAL HISTORY: 1. Allergic rhinitis. 2. History of incidental appendectomy during exploratory laparoscopy. 3. Diffuse arthralgias diagnosed in 2014, likely secondary to [*] 4. Diffuse arthropathy secondary to osteoarthritis followed in a pain clinic. 5. Multiple brown nevi. 6. History of right breast cancer, status post lumpectomy and XRT. 7. Trochanteric bursitis. Status post steroid injection 2014. 8. History of atypical chest pain with negative cardiac evaluation 2005. 9. 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 10. Diverticulosis. 11. Situational depression. 12. Reflux disease. 13. Hypertriglyceridemia. 14. Family history of coronary artery disease. 15. Internal hemorrhoids. 16. History of a hiatal hernia. 17. Hyperlipidemia. 18. Hypertension. 19. Low HDL. 20. History of menorrhagia status post total abdominal hysterectomy/unilateral salpingo- oophorectomy at age 34. 21. Status post right total knee arthroplasty in 2006. 22. Diffuse osteoarthritis. 23. Colonic polyps. 24. Urinary incontinence. 25. Vitamin D deficiency. CURRENT MEDICATIONS: 1. Amlodipine 5 mg twice daily. 2. Duloxetine 60 mg daily. 3. Hydrochlorothiazide 12.5 mg daily. 4. Letrozole 2.5 mg daily. 5. Meloxicam 15 mg daily. 6. [place] 7.5/325 one tablet every 4 hours as needed. 7. Nucynta 50 mg daily. 8. Pantoprazole 40 mg daily as needed. 9. Rosuvastatin 20 mg at bedtime. 10. Voltaren Gel to the ankles 4 times daily as needed. 11. Zometa every [address] Merritt. 12. Zyrtec 10 mg daily as needed. ALLERGIES: 1. Patient states she is allergic to amlodipine/benazepril with amlodipine dose greater than 7.5 causing swelling. 2. Codeine causes nausea, vomiting, diarrhea, rash. 3. Sulfa causes a rash. SOCIAL HISTORY: Patient denies tobacco, alcohol or illicit drug use. 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 She enjoys gardening. She walked routinely. FAMILY HISTORY: Patient's father passed at age 84 secondary to complications of coronary artery disease. Patient's mother passed at age 79 secondary to complications of congestive heart failure. REVIEW OF SYSTEMS: A 12 point review of systems was performed. Pertinent positives and negatives are noted in history of present illness. PHYSICAL EXAMINATION: VITAL SIGNS: Temperature 98.3 degrees, heart rate 70 respirations 20, blood pressure 173/83. GENERAL: Well nourished, well developed, no acute distress. HEENT: Normocephalic, atraumatic. Pupils equal, round, reactive to light. Extraocular muscles intact. Sclerae anicteric. [place] conjunctivae. Oral and nasopharynx clear without exudate. NECK: Supple. No lymphadenopathy. No thyromegaly. No bruits auscultated. CARDIOVASCULAR: Regular rate and rhythm. No significant murmurs, rubs, or gallops. PULMONARY: Clear to auscultation bilaterally. ABDOMEN: Soft, diffusely tender with guarding but no rebound. Positive bowel sounds. EXTREMITIES: Moves all extremities well. No significant clubbing, cyanosis, or edema. NEUROLOGIC: Cranial nerves 2-12 grossly intact. Motor and sensory grossly intact. PSYCHOLOGIC: Examination is appropriate. LABORATORY DATA: Pending at the time of admission. CT scan is pending at the time of admission. ASSESSMENT AND PLAN: An 78-year-old, white female with a complicated past medical history presents for evaluation of intractable nausea, vomiting, and diarrhea. Examination is consistent with a dehydrated state with profound weakness. The patient describes having dark, possibly black stools. The patient will be admitted to the hospital for full evaluation and management of each of these conditions. 1. Admit to General Medicine. 2. Intractable diarrhea-differential diagnosis is quite broad. We will check multiple labs including stool cultures, stool white blood cells and C diff toxin. We will refer patient for CT scan with diffuse abdominal discomfort. We will go we will Hemoccult all stools. Depending on these findings, we will determine if antibiotic intervention and/or gastroenterology consultation is appropriate. 3. Intractable abdominal pain-as above, we will address with multiple labs and a CT scan. We will determine if further intervention is warranted. At this point, patient does not appear to have examination consistent with a surgical abdomen. 4. Intractable nausea and vomiting-once again, differential diagnosis is broad. We will pursue laboratory evaluation. We will start patient on antiemetic agents. Depending on our findings, we will consider whether gastroenterology consultation is appropriate. We will remain aware that medications may be playing a role. We will hold Nucynta. We will resume Cymbalta as I am fearful this was abruptly discontinued. 5. Profound weakness-this likely is secondary to above. We will start patient on IV fluids. We will address conditions as described above. 6. Dehydration. We will start patient on IV fluids. We will monitor patient's volume status closely while hospitalized. 7. Osteoarthritis/chronic pain-I am concerned that the patient's medications may be playing a role with her overall condition. We will discontinue Nucynta. We will have patient resume [place] therapy. We will consider whether resuming Lyrica is appropriate. We will resume her Cymbalta therapy. 8. Depression-this largely is situational. The patient has been treated with Cymbalta in the past for treatment of situational depression and pain. The patient is unsure whether she is taking this routinely. Certainly, abruptly discontinuing abruptly discontinuing this medication could cause some abnormal side effects. 9. Reflux disease-patient has longstanding disease. We will continue patient on pantoprazole therapy. 10. Hypertension-we will follow blood pressures while hospitalized. We will plan to resume home medications as necessary. 11. Hyperlipidemia-we will continue patient on rosuvastatin therapy. 12. Fluid, electrolytes, nutrition. We will monitor electrolytes. Normal saline at 50 mL an hour. Full liquid diet. 13. Prophylaxis. The patient will be placed on SCDs initially. If Hemoccult stool returns negative, we will plan to initiate Lovenox therapy. cc: Lucio Amor MD
[2019-05-26] MEDS: FLAGYL PO SCH ×3 (05:25→20:44)
[2019-05-26] MEDS: CYMBALTA PO SCH (08:42)
[2019-05-26] MEDS: FEMARA PO SCH (08:42)
[2019-05-26] MEDS: NORVASC PO SCH ×2 (08:42→20:44)
[2019-05-26] MEDS: ANTIVERT PO SCH ×2 (08:44→20:43)
[2019-05-26] MEDS: NS 1,000 ML IV SCH ×3 (08:44→20:49)
[2019-05-26] MEDS: NORCO-7.5 PO SCH ×3 (09:23→20:44)
[2019-05-26] MEDS ORDERED: FLAGYL ONE (12:47)
--- NOTE | 2019-05-26 20:00 | PROGRESS NOTE ---
DATE: 05/26/2019 SUBJECTIVE: The patient was admitted yesterday with intractable diarrhea, nausea, and vomiting. The patient was treated with IV fluids, as needed antiemetic agents, and supportive care. A CT scan was performed which revealed uncomplicated diverticulosis coli and a small posterior abdominal wall hernia on the left at the flank, containing a loop of colon but no obstruction. Because of her persistent symptoms and elevated white blood cell count, patient was placed on Flagyl therapy. Over the course of the first 24 hours, patient states she has demonstrated some improvement. Upon my arrival this morning, patient was resting in bed. She noted not having rested very well overnight. Her p.o. intake has been marginal. She was noted to have significant nausea. Throughout the day today, patient's overall condition was largely unchanged. This evening, she also was noted to have considerable nausea. She has had no vomiting nor has she had any diarrhea since being in the hospital. Dr. Balderas has been consulted for further gastroenterology evaluation. There has been no evidence of fevers, chills, shortness of breath, or chest discomfort. OBJECTIVE: T-max 98.6 degrees, heart rate 51 to 62, respirations 14-19, blood pressure 127-145/48- 56.General: Well nourished, well developed, no acute distress. Cardiovascular: Regular rate and rhythm. No significant murmurs, rubs, or gallops. Pulmonary: Clear to auscultation bilaterally. Abdomen: Soft, diffusely tender with guarding but no rebound. Positive bowel sounds. Extremities: Moves all extremities well. No significant clubbing, cyanosis, or edema. Dermatologic: Evaluation reveals no evidence of rash. LABORATORY DATA: None. ASSESSMENT AND PLAN: Intractable diarrhea-intractable abdominal pain-upon admission, laboratory data was significant for an elevated white blood cell count. CT scan did not define any concerning abnormalities. Because of her elevated white count, the patient was started on Flagyl therapy. Stool studies have been ordered but not collected secondary to improvement in her diarrhea. As above, we will consult Dr. Balderas. We will determine if further intervention is warranted. 1. Intractable nausea and vomiting-patient's vomiting has improved. Nausea persists. We will continue patient on as-needed antiemetic agents. We will remain aware that Nucynta may have been contributing to her symptoms. 2. Profound weakness-unfortunately, this persists. This likely is secondary to dehydration in the setting of above. We will continue IV fluids. We will encourage activity once able. 3. Dehydration-patient's volume status is improved. We will continue IV fluids. 4. Osteoarthritis/chronic pain-as above, I am concerned that Nucynta may be playing a role to her nausea and diarrhea. This was discontinued yesterday. [place] therapy was resumed. We also resumed Cymbalta this morning as discontinuing this abruptly may have contributed to her symptoms as well. 5. Depression-this is largely situational. As above, we resumed Cymbalta therapy as it appears this may have been abruptly discontinued. 6. Reflux disease-we will continue patient on pantoprazole therapy. 7. Hypertension-blood pressure is reasonably controlled on her home regimen. 8. Hyperlipidemia-we will continue rosuvastatin therapy. 9. Disposition. At this point, patient continues to require snf care in the hospital setting. We will plan discharge home once appropriate. cc: Lucio Amor MD
--- NOTE | 2019-05-26 20:15 | GASTROENTEROLOGY CONSULTATION ---
DATE: 05/26/2019 REASON FOR CONSULTATION: Uncontrollable nausea, vomiting and diarrhea. HISTORY OF PRESENT ILLNESS: This is an 78-year-old female who reports episodic symptoms over the last 1 to 2 months. Over the last 2 to 3 weeks, her symptoms have become worse. She has reported episodes of nausea vomiting and diarrhea. At times, her diarrhea is explosive. She reports a pattern of the symptoms that usually occur every 2 days or so. For example, she states on Friday evening she started having nausea and vomiting with diarrhea. On Friday she felt better. Most of the day Friday, she felt better. She went to jew but then on Friday afternoon her symptoms started again. She has had a decrease in appetite and has also reported about a 12- pound weight loss. She denies bright red blood in the stool or mucus in the stool, but has noticed some black tarry looking stools. She does report headaches she states she takes the pain medication called Nucynta was that she was started on recently. She has had 4 back surgeries. By our records, her last EGD was in 2012 that showed esophagitis, hiatal hernia and duodenitis. She had a colonoscopy in 2011 that showed tubular adenomatous colon polyp in the sigmoid colon. Diverticulosis and then a nonactive AVM in the descending colon. BACK MEDICAL HISTORY: Back pain, history of osteoarthritis, history of right breast cancer, depression, GERD, hypertriglyceridemia, hyperlipidemia, hypertension, osteoarthritis, urinary incontinence, vitamin D deficiency, allergic rhinitis. PAST SURGICAL HISTORY: She has had multiple back surgeries. She had a lumpectomy and radiation for breast cancer. Appendectomy, abdominal hysterectomy and salpingo-oophorectomy, right knee arthroplasty. ALLERGIES: Codeine causing nausea vomiting. Sulfonamide antibiotics causing a rash. HOME MEDICATIONS: Tylenol 650 mg every 6 hours as needed, Norvasc 5 mg twice a day, Keflex 500 mg twice a day, Cymbalta 60 mg daily, hydrochlorothiazide 12.5 mg daily, [place] 7.5 three times a day, letrozole 2.5 mg daily, Mobic 15 mg daily, pantoprazole 40 mg daily as needed, Lyrica 75 mg twice a day. SOCIAL HISTORY: No reported tobacco or alcohol use. She is retired. REVIEW OF SYSTEMS: Per history of present illness. PHYSICAL EXAMINATION: Vital Signs: Temperature 98.6 degrees, pulse 59, respirations 19, blood pressure 127/51. General: The patient is awake and alert, in no acute distress. HEENT: Normocephalic atraumatic. Pupils equal, round, reactive to light. Sclerae nonicteric. Cardiovascular: Regular rate and rhythm. Pulmonary: Lung sounds essentially clear bilaterally. Abdomen: Soft, maybe some mild tenderness with palpation. Positive bowel sounds. Extremities: No lower extremity edema noted. Neurological: Cranial nerves 2-12 grossly intact. Patient is awake, alert, and oriented to person, place, and time. DIAGNOSTIC RESULTS: Laboratory: Hematology: WBC 11.48, hemoglobin 13.0, hematocrit 41.3, MCV 95.6, platelets 287,000. Chemistry: Sodium 137, potassium 4.6, chloride 101, CO2 25, BUN 17, creatinine 0.9, glucose 130, calcium 10.6, total bilirubin 0.75. AST 16, ALT 13, alkaline phosphatase 81, albumin 3.7, amylase 22, lipase 14. Urinalysis is negative. Abdominal pelvis CT scan showed uncomplicated diverticulosis, a small posterior abdominal wall hernia on the left at the flank containing a loop of colon, but no obstruction. ASSESSMENT AND PLAN: 1. Intractable nausea, vomiting and diarrhea over the last month. Stool studies have been ordered, but the patient has not had a bowel movement since admission. The CT scan results were reviewed. The patient's last esophagogastroduodenoscopy was in 2012. Last colonoscopy 2011. 2. We will proceed with esophagogastroduodenoscopy. Further plans to be made according to findings. Depending on those results, she may need a HIDA scan for workup of her gallbladder. Possibility of side effects from Nucynta pain medication. I believe that is on hold. Further plans will be made as needed. I have discussed this case with Dr. Balderas. Dictated by MICHELLE Garcia for Jemal Balderas MD cc: MICHELLE Espitia MD Scott A. Matthews, MD
--- NOTE | 2019-05-26 20:46 | GASTROENTEROLOGY CONSULTATION ---
DATE: 05/26/2019 HISTORY OF PRESENT ILLNESS: The patient was seen, available data reviewed and the case was discussed with Ade, the nurse practitioner. IMPRESSION: This 78-year-old white female has been experiencing episodes of nausea, vomiting and diarrhea. Her labs, other than elevated white count, is unremarkable. CT scan of the abdomen and pelvis is also unremarkable. I agree with starting her on Antivert. May increase the dose to 25 mg p.o. b.i.d.. In the meantime, I will proceed with esophagogastroduodenoscopy to rule out upper gastrointestinal pathology and if that is negative, a HIDA scan with ejection fraction will be my next step and also we will see how Antivert at full dose works. Her symptoms could be iatrogenic, that would be nausea and vomiting, but I am not sure that would explain her diarrhea. Interestingly, she has not had any gastrointestinal symptoms since admission. I will continue to follow and further plans made according to her progress. cc: MD Lucio Nuñez MD
[2019-05-27] MEDS: NORVASC PO SCH ×3 (00:05→21:35)
[2019-05-27] MEDS: ZOFRAN IV PRN (00:09)
[2019-05-27] MEDS: FLAGYL PO SCH ×3 (05:38→21:35)
[2019-05-27 07:59] LABS: BASO# 0.04 X1000 (0.0-0.2); BASO% 0.5 % (0.0-0.8); EOS# 0.81 X1000 (0.0-0.7); EOS% 9.7 % (0.0-10.0); HEMATOCRIT 38.7 % (37.0-47.0); HEMOGLOBIN 12.2 g/dL (12.0-16.0); IMM GRAN# 0.02 X1000 (0.0-0.04); IMM GRAN% 0.2 % (0.0-0.5); LYMPH# 1.75 X1000 (1.2-3.4); MCH 30.4 PG (27-31); MCHC 31.5 g/dL (33-37); MCV 96.5 FL (81-99); MONO# 0.97 X1000 (0.11-0.59); MONO% 11.6 % (1.7-9.3); MPV 10.9 FL (7.4-10.4); NEUT# 4.75 X1000 (1.4-6.5); PLT 255 X1000 (130-400); RBC 4.01 XMIL (4.2-5.4); RDW 12.6 % (11.5-14.5); WBC 8.34 X1000 (4.8-10.8)
[2019-05-27 08:54] LABS: ALB/GLOB RATIO 1.3; ALBUMIN 3.3 g/dL (3.5-5.0); CALCIUM 9.7 mg/dL (8.8-10.2); CREATININE 0.9 mg/dL (0.5-0.9); POTASSIUM 3.8 mmol/L (3.5-5.1); TOTAL BILIRUBIN 0.75 mg/dL (0.20-1.00); TOTAL PROTEIN 5.8 g/dL (6.3-8.3)
[2019-05-27] MEDS: NS 1,000 ML IV SCH (09:30)
[2019-05-27] MEDS ORDERED: DIPRIVAN 1% ONE ×2 (12:21→13:53)
[2019-05-27] MEDS ORDERED: XYLOCAINE-MPF 2% ONE (12:21)
--- NOTE | 2019-05-27 14:06 | ENDOSCOPY OPERATIVE NOTE ---
[facility] ENDOSCOPY OPERATIVE NOTE , EGD PROCEDURE REPORT PATIENT: Angelica Felton ADMISSION DATE: 05/27/2019 MR#: [id number] : 1940 PROCEDURE DATE: 05/27/2019 SURGEON: Jemal Balderas MD STATUS: inpatient DRIVER: Stefanie Bentley and Violet Benz PREOPERATIVE DIAGNOSIS: The patient is a 78 yr old female here for an EGD due to dyspepsia, nausea, and vomiting. PROCEDURE PERFORMED: EGD w/ biopsy MEDICATIONS: Per Anesthesia TOPICAL ANESTHETIC: none CONSENT: The patient understands the risks and benefits of the procedure and understands that these r isks include, but are not limited to: sedation, allergic reaction, infection, perforation and/or bleeding. Alternative means of evaluation and treatment include, among others: physical exam, x-rays, and/or surgical intervention. The patient elects to proceed with this endoscopic procedure. HISORY AND PHYSICAL: 05/27/2019 DESCRIPTION OF PROCEDURE: During intra-op preparation period all mechanical and medical equipment was checked for proper function. Hand hygiene and appropriate measures for infection prevention was taken. After the risks, benefits and alternatives of the procedure were thoroughly explained, Informed consent was verified, confirmed and timeout was successfully executed by the treatment team. The patient was anesthetized with topical anesthesia and the IX15-w81 ([id number]) endoscope was introduced through the mouth and advanced to the second portion of the duoden um. Retroflexion was performed in the stomach and revealed no abnormalities. The gastroscope was then slowly withdraw n and removed. ESOPHAGUS: The mucosa of the esophagus appeared normal. STOMACH: A few 3 mm sessile polyps were found in the gastric body. Multiple biopsies were performed using cold forceps. DUODENUM: The duodenal mucosa showed no abnormalities. SPECIMENS REMOVED: No ADVERSE EVENTS: There were no complications. POSTOPERATIVE DIAGNOSIS: 1. The mucosa of the esophagus appeared normal 2. Few 3 mm polyps were found in the gastric body; multiple biopsies were performed using cold force ps 3. The duodenal mucosa showed no abnormalities RECOMMENDATIONS: 1. Resume pre-procedure medications 2. Follow-up biopsy results in 2 weeks 3. Return to floor when standard parameters are met 4. HIDA scan with ejection fraction, can be done as out patient. 5. Resume previous diet REPEAT EXAM: Jemal Balderas MD eSigned: Jemal Balderas MD 05/27/2019 2:05 PM cc: Lucio Amor MD PATIENT NAME: Angelica Felton MR#: [id number]
[2019-05-27] MEDS: CYMBALTA PO SCH (15:09)
[2019-05-27] MEDS: NORCO-7.5 PO SCH ×3 (15:09→21:35)
[2019-05-27] MEDS: ANTIVERT PO SCH ×2 (15:10→21:35)
[2019-05-27] MEDS: FEMARA PO SCH (15:10)
--- NOTE | 2019-05-27 21:02 | PROGRESS NOTE ---
DATE: 05/27/2019 SUBJECTIVE: Upon my arrival this morning, patient was resting in bed. The patient states she did not feel well overnight nor did she sleep very well. She was noted to have persistent nausea. Throughout the day today, patient did note some improvement. She was taken for EGD. EGD suggested polyps present but no concerning findings. This evening, patient states she feels somewhat improved from this morning. She has tolerated some ice cream. She denies fevers, chills, shortness of breath, or chest discomfort. Interestingly, she has not had a bowel movement since admission. OBJECTIVE: T-max 98.2 degrees, heart rate 58 to 71, respirations 16 to 20, blood pressure 120 to 141 over 51 to 54.General: Well nourished, well developed, no acute distress. Cardiovascular: Regular rate and rhythm. No significant murmurs, rubs, or gallops. Pulmonary: Clear to auscultation bilaterally. Abdomen: Soft, nontender, nondistended. Positive bowel sounds. Extremities: Moves all extremities well. No significant clubbing, cyanosis, or edema. Dermatologic: Evaluation reveals no evidence of rash. LABORATORY DATA: White blood cell count 8.34, hemoglobin 12.2, hematocrit 38.7, platelet count 255,000. Sodium 141, potassium 3.8 chloride 107 bicarb 25, BUN 13, creatinine 0.9, glucose 107, calcium 9.7, total bilirubin 0.75, total protein 5.8, albumin 3.3, alkaline phosphatase 67, AST 15, ALT 12. ASSESSMENT AND PLAN: 1. Intractable nausea and vomiting-patient has achieved some improvement while hospitalized. I suspect patient suffered from an acute enteritis in conjunction with medication associated nausea. With medication changes and time, patient has achieved some improvement. We will continue symptomatic management for now. We will plan a HIDA scan in the a.m. 2. Profound weakness-the patient is achieving improvement. This likely is a consequence of dehydration in the setting of nausea, vomiting, and diarrhea. We will continue IV fluids. 3. Dehydration-the patient is approaching euvolemia. We will continue IV fluids. 4. Osteoarthritis/chronic pain-as above, patient had been treated with Nucynta. I suspect the patient is having difficulty tolerating this. She has been converted back to [place] and Cymbalta therapy. Symptoms are present, but stable. 5. Depression-as above, patient's Cymbalta was resumed. We will follow this. We will remain aware that abruptly discontinuing Cymbalta could have played a role in her nausea. 6. Reflux disease-we will continue pantoprazole therapy. 7. Hypertension-blood pressure is reasonably controlled on her home regimen. 8. Hyperlipidemia-the patient has been continued on rosuvastatin while hospitalized. 9. Disposition-at this point, patient continues to require half-way care in a hospital setting. We will plan discharge home once appropriate. cc: Lucio Amor MD
[2019-05-28] MEDS: FLAGYL PO SCH ×2 (06:51→13:15)
[2019-05-28] MEDS: NS 1,000 ML IV SCH ×2 (06:51→12:00)
--- NOTE | 2019-05-28 09:52 | Diag Imaging Result Doc PS360 ---
EXAM: HIDA SCAN W/ EJECTION FRACTION HISTORY: Intractable N/V TECHNIQUE: Nuclear medicine HIDA scan with gallbladder ejection fraction COMPARISON: 09/14/2012 FINDINGS: 5.6 mCi Choletec administered. There is normal uptake within the liver. Normal filling of the gallbladder. Ensure was given to determine the gallbladder ejection fraction. This is calculated to be 78% at 60 minutes. Normal emptying into the small bowel. IMPRESSION: Normal exam. Electronically signed by Chi Coker 05/28/2019 9:50 AM
[2019-05-28] MEDS: CYMBALTA PO SCH (10:19)
[2019-05-28] MEDS: NORCO-7.5 PO SCH ×2 (10:19→16:37)
[2019-05-28] MEDS: NORVASC PO SCH (10:19)
[2019-05-28] MEDS: ANTIVERT PO SCH (10:19)
[2019-05-28] MEDS: FEMARA PO SCH (10:19)
[2019-05-28 16:16] VITALS: BP 129/47
--- NOTE | 2019-05-28 18:11 | GASTROENTEROLOGY PROGRESS NOTE ---
DATE: 05/28/2019 SUBJECTIVE: The patient is awake and alert. She has not had any further nausea or vomiting or diarrhea. She had an EGD on 05/27/2019. Findings showed a normal esophagus, a few polyps in the gastric body, and normal duodenum. She did have a HIDA scan this morning. Results reviewed. Findings were normal. She had an ejection fraction at 78% with normal emptying into the small bowel. Pathology of stomach polyp biopsy is pending. OBJECTIVE: Vital Signs: Temperature 97.5, pulse 61, respirations 20, blood pressure 120/40. General: The patient is awake and alert, in no acute distress. LABORATORY: Hematology: WBC 8.34, hemoglobin 12.2, hematocrit 38.7, MCV 96.5, platelets 255. Chemistry: Sodium 141, potassium 3.8, chloride 107, CO2 25, BUN 13, creatinine 0.9, glucose 107, calcium 9.7, total bilirubin 0.75. AST 15, ALT 12, alkaline phosphatase 67, amylase 22, lipase 14. ASSESSMENT AND PLAN: 1. Intractable nausea and vomiting. Has improved. 2. Diarrhea. Has improved. 3. Esophagogastroduodenoscopy showed several polyps in the stomach with biopsies done and biopsies pending. 4. HIDA scan was normal with 78% ejection fraction. 5. Her symptoms have improved currently. She has been ordered a gastrointestinal soft diet after her HIDA scan. We will see how she does with eating. No specific findings to explain her periodic symptoms. Once stable, she can be discharged home. Recommend she follow up with us as an outpatient. Follow up with Dr. Amor as recommended. Will continue to follow during the hospital course and further plans to be made as needed. Patient was also seen by Dr. Balderas. Dictated by MICHELLE Garcia for Jemal Balderas MD cc: MICHELLE Espitia MD Scott A. Matthews, MD
--- NOTE | 2019-05-28 20:23 | DISCHARGE SUMMARY ---
ADMISSION DATE: 05/25/2019 DISCHARGE DATE: 05/28/2019 ADMISSION DIAGNOSES: 1. Uncontrolled diarrhea. 2. Nausea. 3. Vomiting. DISCHARGE DIAGNOSES: 1. Intractable nausea and vomiting, improving. 2. Intractable diarrhea, resolved. 3. Profound weakness, improving. 4. Dehydration, resolved. 5. Osteoarthritis/chronic pain, present on arrival. 6. Depression, present on arrival. 7. Reflux disease, present on arrival. 8. Hypertension, present on arrival. 9. Hyperlipidemia, present on arrival. CONSULTATIONS: Dr. Balderas with Gastroenterology was consulted for further evaluation and management of intractable nausea, vomiting, and diarrhea. PROCEDURES: 1. CT scan of the abdomen, pelvis was performed on 05/25/2019 which revealed uncomplicated diverticulosis coli. Small posterior abdominal wall hernia on the left at the flank containing a loop of colon but no obstruction. 2. EGD was performed on 05/27/2019 which revealed normal mucosa of the esophagus, few 3 mm polyps found in the gastric body, duodenal mucosa showed no abnormalities. 3. HIDA scan was performed on 05/28/2019 which revealed a normal examination. HISTORY AND PHYSICAL EXAMINATION: See admit note . PHYSICAL EXAMINATION PRIOR TO DISCHARGE: Temperature 98.3 degrees, heart rate 62, respiration 16, blood pressure is 129/47. General: Well nourished, well developed, no acute distress. Cardiovascular: Regular rate and rhythm. No significant murmurs, rubs, or gallops. Pulmonary: Clear to auscultation bilaterally. Abdomen: Soft, nontender, nondistended. Positive bowel sounds. Extremities: Moves all extremities well. No significant clubbing, cyanosis or edema. Dermatologic: Evaluation reveals no evidence of rash. LABORATORY DATA: Prior to discharge. White blood cell count 8.34, hemoglobin 12.2, hematocrit 38.7, platelet count 255,000. Sodium 141, potassium 3.8, chloride 107, bicarb 25, BUN 13, creatinine 0.9, glucose 107, calcium 9.7, total bilirubin 0.75, total protein 5.8, albumin 3.3, alkaline phosphatase 67, AST 15, ALT 12. HOSPITAL COURSE: Patient was admitted as per history and physical examination. Hospital course per condition is as follows. 1. Intractable nausea and vomiting-upon admission, patient was noted to have intractable nausea and vomiting. Interestingly, this had increased considerably over the course of the of several days prior to admission. She had intermittent symptoms however over the course of the last month. At this point, I suspect this represents an underlying enteritis exacerbating symptoms likely associated with medications. While hospitalized, patient was treated supportively with IV fluids and antiemetic agents. Oral Flagyl was initiated for the possibility of underlying colitis. EGD was performed with above-mentioned results. HIDA scan was performed also with above mentioned result. At time of discharge patient's overall condition had improved considerably. Patient will be discharged off of Nucynta therapy. She has been transitioned back to [place]. As needed [*]added. Further gastroenterology evaluation as an outpatient will be pursued. 2. Intractable diarrhea-this is quite interesting. Patient complained of [*] as an outpatient but improved quickly while INCOMPLETE REPORT -- DICTATION ENDS HERE. cc: Lucio Amor MD
--- NOTE | 2019-05-28 20:37 | DISCHARGE SUMMARY ---
ADMISSION DATE: 05/25/2019 DISCHARGE DATE: 05/28/2019 CONTINUATION: HOSPITAL COURSE: 1. Intractable diarrhea-interestingly, upon admission, patient achieved quick improvement in her overall symptoms. This likely was a consequence of timing in the setting of a viral illness versus improvement with adding Flagyl therapy. As patient's symptoms improved on therapy, she will complete 5 additional days of Flagyl as an outpatient. Patient likely will require a colonoscopy as an outpatient. 2. Dizziness-patient was diagnosed while hospitalized. This likely is a consequence of her acute illness. Patient was started on Antivert therapy with some improvement. She will continue this as an outpatient. 3. Profound weakness-this was diagnosed upon admission as well. This likely was a consequence of her above-mentioned symptoms as well as the possibility that she accidentally abruptly discontinued duloxetine therapy. With treatment as above as well as treatment of dehydration and resuming duloxetine, her symptoms improved, although not back to baseline. We will continue to follow this as an outpatient. 4. Dehydration-patient was treated with IV fluids while hospitalized. At time of discharge, she was tolerating p.o. We will follow this as an outpatient as well. 5. Osteoarthritis/chronic pain-patient is followed by Dr. Ramos in [place]. She recently was transitioned to Nucynta therapy. Unfortunately, she has had difficulty with this medications in the past. This was discontinued. Her [place] 3 times daily was resumed. Cymbalta was also resumed as described above. At present time, her symptoms are tolerable. We will discharge patient home with 1 week of [place] with anticipation for her to discuss this further with Dr. Ramos. At this point, I do not feel like that she is a good candidate for Nucynta therapy. 6. Depression-the patient presented with situational depression associated with her acute illness. As above, it appears she may have accidentally self-discontinued Cymbalta. This was resumed while hospitalized. She will continue this as an outpatient. 7. Reflux disease-patient was continued on pantoprazole therapy while hospitalized. Symptoms remained reasonably controlled. As above, EGD did not find significant pathology. 8. Hypertension-blood pressure remained reasonably controlled on her home regimen with exception of hydrochlorothiazide. As she is euvolemic, we will resume her previous hydrochlorothiazide therapy. 9. Hyperlipidemia-the patient was continued on rosuvastatin therapy while hospitalized. DISCHARGE CONDITION: Good. DISPOSITION: Discharge to home. MEDICATIONS: 1. Meclizine 12.5 mg twice daily. 2. Femara 2.5 mg daily. 3. [place] 7.5/325 one tablet 3 times daily. 4. Zofran 4 mg ODT every 6 hours as needed. 5. Flagyl 500 mg every 8 hours for 5 additional days. 6. Hydrochlorothiazide 12.5 mg daily. 7. Amlodipine 5 mg twice daily. 8. Tylenol 650 mg every 6 hours as needed. 9. Duloxetine 60 mg daily. 10. Protonix 40 mg daily as needed. 11. Meloxicam 15 mg daily as needed. FOLLOWUP: The patient is to follow up with me in approximately 1 to 2 weeks. Patient is to follow up with Dr. Balderas as arranged. cc: Lucio Amor MD
== END 2019-05-28 18:21 | disposition home or self-care (01) | DRG 392 ==
LOC: DIRADM 16:58 → 3N 17:22
PROVIDERS: ADMIT Internal Medicine; ATTEND Internal Medicine